=== PATIENT | male | born 1965 | race Caucasian/White ===

== ENCOUNTER 2016-12-06 08:59 | Emergency (ER) | payer OTHER ==
[2016-12-06 09:06] VITALS: BP 159/99; PULSE 84; TEMP 98.2; BMI 47.0
--- NOTE | 2016-12-06 09:37 | PDOC ---
History of Present Illness - General Chief Complaint: Laceration Stated Complaint: VARICOSE VEIN BLEEDING Time Seen by Provider: 12/06/16 09:35 History Source: Patient Exam Limitations: No Limitations - History of Present Illness Initial Comments: CHIEF COMPLAINT: 51 y/o afebrile male with PMH varicose veins and hypothyroidism c/o varicose vein bleeding in left foot this morning. HISTORY OF PRESENT ILLNESS: He states he was putting on his socks when the bleeding started. The patient states this happened last year and he had to have it stitched. He does not have a vascular surgeon. He has no other complaints. He is not on a blood thinner. Vital signs on arrival are within normal limits. REVIEW OF SYSTEMS: GENERAL/CONSTITUTIONAL: No fever/chills. No weakness. No weight change. MUSCULOSKELETAL: +left lower extremity bleeding. No neck or back pain. SKIN: No rash or easy bruising. NEUROLOGIC: No headache, vertigo, loss of consciousness, or loss of sensation. PHYSICAL EXAM: VITAL_SIGNS: within normal limits GENERAL_APPEARANCE: alert, cooperative, no obvious discomfort. MENTAL_STATUS: speech clear, oriented X 3, responds appropriately to questions. NEURO: motor intact and sensory intact in injured extremity. EXTREMITIES: good pulse in injured extremity. Very small, pinpoint region of coagulated blood where the patient admits the bleeding was on medial left ankle with surrounding varicose veins. No active bleeding. SKIN: warm, dry, good color. Past History - Past Medical History Allergies/Adverse Reactions: Allergies Allergy/AdvReac Type Severity Reaction Status Date / Time No Known Allergies Allergy Verified 12/06/16 09:00 Home Medications: Ambulatory Orders Acetaminophen [Tylenol -] 650 mg PO Q4H 04/06/15 Diphenhydramine HCl [Benadryl -] 75 mg PO PRN PRN 04/06/15 Levothyroxine [Synthroid -] 225 mcg PO DAILY 04/06/15 Psychiatric Problems: Yes (DEPRESSION) Suicide Attempt (Hx): No Thyroid Disease: Yes (HYPO) Other medical history: ARTHRITIS - Psycho/Social/Smoking Cessation Hx Anxiety: No Suicidal Ideation: No Smoking History: Never smoked Have you smoked in the past 12 months: No Information on smoking cessation initiated: No Hx Alcohol Use: No Drug/Substance Use Hx: No Substance Use Type: None *Physical Exam - Vital Signs Last Vital Signs Temp Pulse Resp BP Pulse Ox 98.2 F 84 19 159/99 96 12/06/16 09:01 12/06/16 09:01 12/06/16 09:01 12/06/16 09:01 12/06/16 09:01 Medical Decision Making - Medical Decision Making A/P: 51 y/o male with clotted varicose vein bleed. Cleaned the area, applied surgicell and wrapped with an BASILIO bandage. The patient was instructed not to move the surgicell for 24 hours and to avoid getting the area wet. Will give referral for vascular surgeon and suggested he call tomorrow. Pt instructed to return to the ER with any worsening or concerning symptoms. The patient verbalizes understanding of all instructions, has no further questions and is awaiting discharge. *DC/Admit/Observation/Transfer Diagnosis at time of Disposition: Bleeding from varicose veins of left lower extremity - Discharge Dispostion Disposition: HOME Condition at time of disposition: Improved - Referrals Referrals: Juan Clayton MD [Staff Physician] - Call tomorrow - Patient Instructions Additional Instructions: Discharge Instructions: -Keep foot wrapped for 24 hours. -Call Dr. Clayton today to schedule follow up appointment -Return to the ER with any worsening or concerning symptoms
== END 2016-12-06 10:17 | disposition home or self-care (01) ==
LOC: JERFT 08:59
DX: I83.892 Varicose veins of left lower extremity with other complications (principal); E03.9 Hypothyroidism, unspecified; F32.9 Major depressive disorder, single episode, unspecified; M12.9 Arthropathy, unspecified
CPT/HCPCS: 99281-25